=== PATIENT | female | born 2000 | race Caucasian/White ===

== ENCOUNTER 2024-05-23 10:46 | Emergency (ER) | payer OTHER, SELFPAY ==
[2024-05-23 10:50] VITALS: BP 126/89
[2024-05-23 11:05] LABS: % Basophils 1.2 % (0-2); % Eosinophils 1.1 % (0-6); % Immature Granulocytes 0.5 % (0-0.5); % Lymphocytes 22.1 % (20.5-51.1); % Monocytes 6.4 % (1.7-9.3); % Neutrophils 68.7 % (42.2-75.2); Absolute Basophils 0.1 10^3/uL (0-0.2); Absolute Eosinophils 0.1 10^3/uL (0-0.7); Absolute Lymphocytes 1.4 10^3/uL (1.2-3.4); Absolute Monocytes 0.4 10^3/uL (0.1-0.6); Absolute Neutrophils 4.5 10^3/uL (1.4-6.5); Hematocrit 41.1 % (37.0-47.0); Hemoglobin 14.5 g/dL (12.0-16.0); Mean Corp Hgb Conc. 35.3 g/dL (33.0-37.0); Mean Corpuscular Hgb 32.1 pg (27.0-31.0); Mean Corpuscular Volume 90.9 fL (81.0-99.0); Mean Platelet Volume 9.1 fL (7.4-10.4); Nucleated Red Blood Cells % 0 %; Platelet Count 321 10^3/uL (130-400); Red Blood Cell Count 4.52 10^6/uL (4.20-5.40); Red Cell Dist. Width 12.1 % (11.5-14.5); White Blood Cell Count 6.5 10^3/uL (4.8-10.8)
[2024-05-23 11:25] LABS: ALT (SGPT) 20 U/L (0-35); AST (SGOT) 19 U/L (14-36); Alkaline Phosphatase 68 U/L (38-126); Blood Urea Nitrogen 13 mg/dl (7-17); Calcium 9.8 mg/dl (8.4-10.2); Carbon Dioxide 25 mmol/L (22-30); Chloride 104 mmol/L (98-107); Glucose 99 mg/dl (70-99); Lipase 67 U/L (23-300); Potassium 4.2 mmol/L (3.5-5.1); Sodium 141 mmol/L (135-145); Total Bilirubin 1.2 mg/dl (0.2-1.3); Total Protein 7.6 g/dl (6.3-8.2); eGFR > 60.00
[2024-05-23 11:27] LABS: HCG, Serum Qualitative Screen Negative
--- NOTE | 2024-05-23 11:42 | ED.GENMED ---
History of Present Illness
General
Chief Complaint: Abdominal Symptoms
Source: patient and family
Time Seen by Provider: 05/23/24 11:23
History of Present Illness
History of Present Illness:
24-year-old female with past medical history of anxiety, previous history of anorexia presenting to the emergency department with grandmother for evaluation of GI symptoms that have been ongoing since September of last year noting that she has had an
approximate 15 pound weight loss during this time, waxing and waning nausea with vomiting, increased stress and anxiety due to multiple social issues including the recent passing of her grandfather, break-up with a long-term relationship, working 3
full-time jobs, school stress, etc. Patient states that her symptoms today are not much different than what she has been experiencing over the last few months but she feels as if her symptoms are getting worse. She denies any fevers, chills,
rigors, back or flank pain, urinary symptoms, bowel changes, chest pain or shortness of breath, vaginal bleeding or discharge. Her period was 2 weeks ago, has no concern for . Social history was also noted for using marijuana for her
stress and anxiety but states she has not noticed that when she does use marijuana her GI symptoms get worse
Past History
Past History
ED Past Medical History: Psychiatric
ED Past Surgical History: None
Social History
Tobacco: Non-smoker
Alcohol: None
Drug: Marijuana
Personal: Single
Living: with family
Employment: Employed
Review of Systems
Review of Systems
All Other Systems: ROS reviewed and negative except as documented in HPI and ROS
Phy Exam
Physical Exam
Physical Exam:
GENERAL: Alert , in no apparent distress
EYE: clear conjunctiva b/l
HEAD: NCAT
ENT: mmm.
CARDIAC: Regular rate and rhythm .
LUNGS: Clear breath sounds bilaterally, no acute respiratory distress, no wheezes/rales/rhonchi
ABDOMEN: Soft, without focal tenderness, no r/g, no cvat
NEUROLOGICAL: Alert and oriented
SKIN: Warm and dry, skin intact.
MUSCULOSKELETAL: No edema, well perfused.
PSYCH: Normal and appropriate interaction.
Scores
Heart Failure Risk
Heart Failure Risk Score: Not Applicable
Heart Score for Chest Pain Patients
STEMI patient?: Not applicable
Withdrawal Assessment of Alcohol
Withdrawal Assessment Completed?: Not applicable
Course
Orders/Labs/Results
Orders:
Orders
05/23/24 10:57
Test Result ONCE
05/23/24 10:59
Complete Blood Count/With Diff Urgent
Comprehensive Metabolic Panel Urgent
HCG, Serum Qualitative Screen Urgent
Comment: Notify provider if positive test present
Lipase Urgent
05/23/24 11:42
Crisis Consult Urgent
Reason for Consult: stress/anxiety, outpatient referal
Ondansetron Orally Disint [Zofran Odt (Orally Disintegrating)] 4 mg PO NOW STA
Abnormal Lab Results
05/23/24
10:59
MCH 32.1 H pg
(27.0-31.0)
05/23/24 10:59
05/23/24 10:59
Vital Signs
Initial and Last Documented VS:
Initial Vital Signs
Temp Pulse Resp BP Pulse Ox
98.6 F 88 18 126/89 99
05/23/24 10:50 05/23/24 10:50 05/23/24 10:50 05/23/24 10:50 05/23/24 10:50
Last Documented Vital Signs
Temp Pulse Resp BP Pulse Ox
98.6 F 88 18 126/89 99
05/23/24 10:50 05/23/24 10:50 05/23/24 10:50 05/23/24 10:50 05/23/24 10:50
MDM/Problems Addressed
Differential Diagnosis Includes:
Stress/anxiety, cannabinoid hyperemesis, electrolyte derangement, dehydration,
MDM/Problems Addressed:
24-year-old female presenting to the emergency department for evaluation of GI upset, weight loss and stating that while she wants to eat feels as if she is not able to keep anything down with symptoms gradually worsening over the last few months.
Patient did go to her primary care provider in January where she was found to have low vitamin D and has been taking a vitamin D supplement since. She is overall well-appearing and in no acute distress, hemodynamically stable here. Abdomen is
soft and without any tenderness. I do question the amount of stress and anxiety that is causing the patient's the symptoms as a strong likelihood for her presenting symptoms as well as the use of cannabis potentially causing some of her symptoms
and discussed this at length with the patient and her grandmother. Given the duration of her symptoms I am less suspicious for an acute emergent pathology however if there is significant nausea and vomiting there dehydration/electrolyte
abnormalities. Will check labs and treat with Zofran. Patient is agreeable to speaking with our crisis staff about outpatient based resources for some follow-up. I also encouraged the patient to follow-up with her primary care provider as they
would likely be able to facilitate more testing than what we could provide here in the emergency department.
*Pulse Oximetry
Patient hypoxic: no
*Critical Care Note
Total Time (30-74mins, 75-104mins- exclusive of procedures): Not Applicable
Patient Management
Escalation/DeEscalation of care consider admission/obs:
Patient's workup is largely unremarkable. Chemistry within normal limits and no leukocytosis on labs. She was provided with information for outpatient based resources for her myriad of social issues that have been ongoing. Prescription for Zofran
sent to pharmacy. Encourage close follow-up with primary care provider. Stable for discharge home.
ED Attending Note
-
Portions of this chart may have been created with voice recognition software.� Occasional wrong word or��sound alike� substitutions may have occurred due to the inherent limitations of voice recognition software.
Discharge Plan
Departure
Patient Disposition: Home (Routine Discharge)
Date of Disposition: 05/23/24
Time of Disposition: 12:52
Patient with high blood pressure during this ER visit?: No
Discharge Problem:
Nausea and vomiting
Instructions: Nausea and Vomiting, Adult (DC)
Prescriptions:
New
ondansetron 4 mg tablet,disintegrating
4 mg PO TIDPRN PRN (Reason: nausea/vomiting) Qty: 10 0RF
Referrals:
Gregor Toure MD [Family Provider] -
Stand Alone Forms: Return to Work
Interventions
Interventions:
*Risk Screen - Suicide Last Done: 05/23/24 10:50
*General Assessment Last Done: 05/23/24 10:50
Discharge Date and Time
Print Language: GIBRALTARIAN
[2024-05-23] MEDS: ZOFRAN ODT (ORALLY DISINTEGRATING) 4 MG PO (12:25)
== END 2024-05-23 13:00 | disposition home or self-care (01) ==
LOC: EMR 10:46
PROVIDERS: EMERGENCY PHYSICIAN Student in an Organized Health Care Education/Training Program; FAMILY PHYSICIAN Family Medicine
DX: R11.2 Nausea with vomiting, unspecified (principal); F41.9 Anxiety disorder, unspecified
CPT/HCPCS: 99283; 80053; 83690; 84703; 85025